=== PATIENT | female | born 1985 | race Hispanic/Latino ===

== ENCOUNTER 2018-12-04 15:55 | Inpatient (IN) | payer MEDICAID ==
[2018-12-04] MEDS ORDERED: LACTATED RINGERS 1,000 ML ONE (17:18)
[2018-12-04] MEDS ORDERED: LACTATED RINGERS 1,000 ML IV SCH ×2 (18:00→19:00)
[2018-12-04] MEDS ORDERED: STADOL IV PRN (18:31)
[2018-12-04] MEDS ORDERED: BRETHINE SUB-Q PRN (18:31)
[2018-12-04] MEDS ORDERED: BRETHINE IVP PRN (18:31)
[2018-12-04] MEDS ORDERED: SUBLIMAZE IV PRN (18:31)
[2018-12-04] MEDS ORDERED: XYLOCAINE 2% INFILTRATI ONE (18:31)
[2018-12-04] MEDS ORDERED: MINERAL OIL PO PRN (18:31)
[2018-12-04 18:41] LABS: Basophils % (Auto) 0.1 % (0.0-1.8); Eosinophils % (Auto) 0.1 % (0.0-4.3); Hemoglobin 12.5 gm/dl (10.1-14.3); Mean Corpuscular HGB Conc 34 % (30-34); Mean Corpuscular Volume 87 fl (79-97); Monocytes # (Auto) 0.7 K/mm3 (0.0-0.8); Monocytes % (Auto) 7.6 % (0.0-7.3); Platelet Count 209 K/mm3 (140-440); Red Blood Count 4.25 M/mm3 (3.65-5.03); Red Cell Distribution Width 13.7 % (13.2-15.2)
--- NOTE | 2018-12-04 18:43 | History and Physical Report ---
History of Present Illness Date of examination: 12/04/18 Date of admission: 12/04/18 15:55 Chief complaint: I'm here for induction History of present illness: Pt is a 33 year old who presents today for induction of labor secondary to oligohydramnios at term at the recommendation of [facility]. Past History Past Medical History: no pertinent history Past Surgical History: no surgical history Social history: - Obstetrical History Expected Date of Delivery: 12/06/18 Actual Gestation: 39 Week(s) 5 Day(s) : 4 Medications and Allergies Allergies Allergy/AdvReac Type Severity Reaction Status Date / Time No Known Allergies Allergy Verified 12/04/18 16:52 Home Medications Medication Instructions Recorded Confirmed Last Taken Type No Known Home Medications [No 12/04/18 12/04/18 Unknown History Reported Home Medications] Active Meds: Active Medications Lactated Ringer's (Lactated Ringers) 1,000 mls @ 125 mls/hr IV DIRECT ANITA Review of Systems All systems: negative Genitourinary: deferred Rectal Exam: deferred - Vital Signs Vital signs: Vital Signs Temp Pulse Resp BP 96.4 F L 89 20 111/72 12/04/18 16:52 12/04/18 16:52 12/04/18 16:52 12/04/18 16:52 Temp Pulse Resp BP Pulse Ox 96.4 F L 89 20 111/72 12/04/18 16:52 12/04/18 16:53 12/04/18 16:52 12/04/18 16:53 - Physical Exam Breasts: Positive: deferred Cardiovascular: Regular rate, Normal S1, Normal S2 Lungs: Positive: Clear to auscultation, Normal air movement Abdomen: Positive: normal appearance, soft, normal bowel sounds Genitourinary (Female): Positive: normal external genitalia, normal perenium Vulva: both: normal Vagina: Positive: normal moisture Uterus: Positive: enlarged Adnexa: both: normal Extremities: Positive: normal Deep Tendon Reflex Grade: Normal +2 - Obstetrical FHR: auscultation normal Cervical Dilatation: 3.5 Cervical Effacement Percentage: 60 station: -3 Uterine Contraction Pattern: Irregular Results Result Diagrams: 12/04/18 17:30 All other labs normal. Assessment and Plan IUP at 39.5 weeks who presents for induction of labor secondary to oligohydramnios at term. Patient has had an otherwise uncomplicated course.
[2018-12-04] MEDS ORDERED: PITOCin/NS 20 UNIT/1000ML DRIP 20 UNITS/1,000 ML BAG IV SCH (19:00)
[2018-12-04] MEDS ORDERED: PITOCin/NS 30 UNIT/500ML 30 UNITS/500 ML BAG IV SCH (19:00)
--- NOTE | 2018-12-05 01:13 | Procedure Note ---
OB Delivery Note - Delivery Date of Delivery: 12/05/18 Surgeon: YAN NEVES Estimated blood loss: 200cc - Vaginal Delivery presentation: vertex Delivery position: OA Intrapartum events: none Delivery induction: oxytocin Delivery monitor: external FHT, external uterine Route of delivery: Delivery placenta: spontaneous Delivery cord: nuchal cord, 3 umbilical vessels Episiotomy: none Delivery laceration: none Anesthesia: none Delivery comments: Viable female delivered over intact perineum with loose nuchal easily reduced on perineum. placed on maternal abdomen. Apgars 8,9. Weight 7 pounds 7 ounces. Placenta delivered spontaneously and intact with 3vc. No lacerations. Pt tolerated procedure well. Excellent hemostasis. - A at 1 minute: 8 at 5 minutes: 9 (7 pounds 7 ounces) Infant Gender: Female
[2018-12-05] MEDS ORDERED: TYLENOL PO PRN (03:31)
[2018-12-05] MEDS ORDERED: ZOFRAN IV PRN (03:31)
[2018-12-05] MEDS ORDERED: BENADRYL PO PRN (03:31)
[2018-12-05] MEDS ORDERED: TUCKS PAD TP PRN (03:31)
[2018-12-05] MEDS ORDERED: PHENERGAN PR PRN (03:31)
[2018-12-05] MEDS ORDERED: PHENERGAN PO PRN (03:31)
[2018-12-05] MEDS ORDERED: MILK OF MAGNESIA PO PRN (03:31)
[2018-12-05] MEDS ORDERED: LANSINOH TP PRN (03:31)
[2018-12-05] MEDS ORDERED: DULCOLAX PR PRN (03:31)
[2018-12-05] MEDS ORDERED: SODIUM CHLORIDE FLUSH SYRINGE 10 ML IV PRN (03:31)
[2018-12-05] MEDS ORDERED: TORADOL IV PRN (03:31)
[2018-12-05] MEDS: IBUPROFEN PO SCH ×3 (04:06→16:45)
[2018-12-05] MEDS: NORCO 5/325 PO PRN ×3 (04:07→16:45)
[2018-12-05] MEDS: COLACE PO SCH (09:54)
[2018-12-05] MEDS: PRENATAL VITAMIN PO SCH (09:54)
[2018-12-05 14:25] LABS: Hematocrit 30.8 % (30.3-42.9); Hemoglobin 10.3 gm/dl (10.1-14.3)
[2018-12-05] MEDS ORDERED: BOOSTRIX IM ONE (18:00)
[2018-12-06] MEDS: NORCO 5/325 PO PRN ×2 (00:14→06:30)
[2018-12-06] MEDS: COLACE PO SCH ×2 (00:15→09:50)
[2018-12-06] MEDS: IBUPROFEN PO SCH ×3 (00:15→12:55)
[2018-12-06] MEDS: PRENATAL VITAMIN PO SCH (09:50)
--- NOTE | 2018-12-06 14:17 | Progress Note ---
Assessment and Plan - Patient Problems (1) Anemia affecting Status: Acute Plan to address problem: Asymptomatic. (2) Oligohydramnios delivered Status: Acute Plan to address problem: Recovering well. Desires to be discharged today with and assist in care of other children. Subjective - Subjective Principal diagnosis: oligohydramnios Patient reports: appetite normal, voiding normally, pain well controlled [place]: doing well Objective - Vital Signs Latest vital signs: Vital Signs Temp Pulse Resp BP BP Pulse Ox 12/06/18 12:55 18 12/06/18 08:27 97.5 F L 72 18 117/62 12/05/18 23:56 98.2 F 83 20 104/62 97 12/05/18 16:45 16 12/05/18 15:20 97.6 F 71 18 101/61 98 Intake and Output 12/05/18 12/06/18 12/06/18 23:59 07:59 15:59 Intake Total 360 480 Balance 360 480 Intake: Oral 480 Intake, Free Water 360 Other: Total, Intake Amount 480 # Voids Void 3 - Exam Uterus: Present: firm - Labs Labs: Laboratory Last Values WBC 9.7 K/mm3 (4.5-11.0) 12/04/18 17:30 RBC 4.25 M/mm3 (3.65-5.03) 12/04/18 17:30 Hgb 10.3 gm/dl (10.1-14.3) 12/05/18 13:43 Hct 30.8 % (30.3-42.9) D 12/05/18 13:43 MCV 87 fl (79-97) 12/04/18 17:30 MCH 29 pg (28-32) 12/04/18 17:30 MCHC 34 % (30-34) 12/04/18 17:30 RDW 13.7 % (13.2-15.2) 12/04/18 17:30 Plt Count 209 K/mm3 (140-440) 12/04/18 17:30 Lymph % (Auto) 21.0 % (13.4-35.0) 12/04/18 17:30 [place] % (Auto) 7.6 % (0.0-7.3) H 12/04/18 17:30 Eos % (Auto) 0.1 % (0.0-4.3) 12/04/18 17:30 Baso % (Auto) 0.1 % (0.0-1.8) 12/04/18 17:30 Lymph # 2.0 K/mm3 (1.2-5.4) 12/04/18 17:30 [place] # 0.7 K/mm3 (0.0-0.8) 12/04/18 17:30 Eos # 0.0 K/mm3 (0.0-0.4) 12/04/18 17:30 Baso # 0.0 K/mm3 (0.0-0.1) 12/04/18 17:30 Seg Neutrophils % 71.2 % (40.0-70.0) H 12/04/18 17:30 Seg Neutrophils # 6.9 K/mm3 (1.8-7.7) 12/04/18 17:30 RPR Nonreactive (Nonreactive) 12/04/18 17:30 Blood Type O POSITIVE 12/04/18 17:30 Antibody Screen Negative 12/04/18 17:30
[2018-12-06 17:05] VITALS: BP 112/62
--- NOTE | 2018-12-06 18:51 | Discharge Summary ---
Providers - Providers Date of Admission: 12/04/18 15:55 Attending physician: YAN NEVES Primary care physician: YAN NEVES Hospitalization Reason for admission: induction of labor, other (oligohydramnios) Delivery: Procedure details: Delivery Date of Delivery: 12/05/18 Surgeon: YAN NEVES Estimated blood loss: 200cc - Vaginal Delivery presentation: vertex Delivery position: OA Intrapartum events: none Delivery induction: oxytocin Delivery monitor: external FHT, external uterine Route of delivery: Delivery placenta: spontaneous Delivery cord: nuchal cord, 3 umbilical vessels Episiotomy: none Delivery laceration: none Anesthesia: none Delivery comments: Viable female delivered over intact perineum with loose nuchal easily reduced on perineum. Infant placed on maternal abdomen. Apgars 8,9. Weight 7 pounds 7 ounces. Placenta delivered spontaneously and intact with 3vc. No lacerations. Pt tolerated procedure well. Excellent hemostasis. - A at 1 minute: 8 at 5 minutes: 9 (7 pounds 7 ounces) Gender: Female complications: none Discharge diagnosis: IUP at term delivered [place] baby: female Hospital course: Vitals stable. Bleeding well controlled. Discharged home in stable condition. Condition at discharge: Stable Disposition: DC- TO HOME OR SELFCARE - Discharge Diagnoses (1) Oligohydramnios delivered Status: Acute (2) Anemia affecting Status: Acute Comment: asymptomatic. continue home iron medications. Plan - Discharge Medications Prescriptions: Ibuprofen [Motrin] 800 mg PO Q8HR PRN #40 tablet PRN Reason: Pain, Moderate (4-6) HYDROcodone/APAP 5-325 [[place] 5/325] 1 each PO Q4HR PRN #20 tablet PRN Reason: Pain - Provider Discharge Summary Additional instructions: [] Smoking cessation referral if applicable(refer to patient education folder for contact #) [] Refer to [facility] Booklet Call your doctor immediately for: * Fever > 100.5 * Heavy vaginal bleeding ( >1 pad per hour) * Severe persistent headache * Shortness of breath * Reddened, hot, painful area to leg or breast * Drainage or odor from incision. * Keep incision clean and dry at all times and follow doctor's instructions regarding bathing/showering - Follow up plan Follow up: YAN NEVES MD [Primary Care Provider] - 7 Days Forms: C Discharge Summary, Discharge Signature Page
== END 2018-12-06 18:53 | disposition home or self-care (01) | DRG 775 ==
LOC: LD 15:55 → OB 12-05 03:07
PROVIDERS: ADMIT Obstetrics & Gynecology; ATTEND Obstetrics & Gynecology
PROC: 3E033VJ Introduction of Other Hormone into Peripheral Vein, Percutaneous Approach (ICD-10-PCS; 2018-12-04)
PROC: 10E0XZZ Delivery of Products of Conception, External Approach (ICD-10-PCS; principal; 2018-12-05)
PROC: 3E0234Z Introduction of Serum, Toxoid and Vaccine into Muscle, Percutaneous Approach (ICD-10-PCS; 2018-12-05)
DX: O41.03X0 Oligohydramnios, third trimester, not applicable or unspecified (principal); O69.81X0 Labor and delivery complicated by cord around neck, without compression, not applicable or unspecified; O99.02 Anemia complicating childbirth; Z3A.39 39 weeks gestation of pregnancy; Z37.0 Single live birth; Z23 Encounter for immunization
CPT/HCPCS: 36415; 85014; 85018; 85025; 86592; 86850; 86900; 86901; 90715; G0378; A6250; J0595; J2590; J7120

== ENCOUNTER 2019-01-10 07:58 | Day surgery (SDC) | payer MEDICAID ==
[~2019-01-10 07:58] MED LIST: MARCAINE 0.25% INFILTRATI ONE; METHYLENE BLUE ONE; SILVER NITRATE TP ONE
[2019-01-10] MEDS ORDERED: ANCEF/STERILE WATER 2 GM/20 ML 2 GM/20 ML SYRINGE IV NR (09:00)
--- NOTE | 2019-01-10 09:28 | Anesthesia Day of Surgery ---
Anesthesia Day of Surgery - Day of Surgery Patient Examined: Yes Patient H&P Reviewed: Yes Patient is NPO: Yes
--- NOTE | 2019-01-10 09:28 | Anesthesia Consultation ---
Anesthesia Consult and Med Hx Date of service: 01/10/19 - Airway Anesthetic Teeth Evaluation: Good ROM Head & Neck: Adequate Mental/Hyoid Distance: Adequate Mallampati Class: Class II Intubation Access Assessment: Probably Good - Pulmonary Exam CTA: Yes - Cardiac Exam Cardiac Exam: RRR - Pre-Operative Health Status ASA Pre-Surgery Classification: ASA2 Proposed Anesthetic Plan: General - Pulmonary Hx Smoking: Yes (former smoker quit 10 yrs) Hx Respiratory Symptoms: No - Cardiovascular System Hx Hypertension: No Hx Heart Attack/AMI: No Hx Percutaneous Transluminal Coronary Angioplasty (PTCA): No - Central Nervous System Hx Seizures: No CVA: No Hx Psychiatric Problems: No - Gastrointestinal Hx Gastroesophageal Reflux Disease: No - Endocrine Hx Renal Disease: No Hx Liver Disease: No Hx Insulin Dependent Diabetes: No Hx Non-Insulin Dependent Diabetes: No Hx Thyroid Disease: No Hx Hypothyroidism: No Hx Hyperthyroidism: No - Hematic Hx Anemia: No Hx Sickle Cell Disease: No - Other Systems Hx Alcohol Use: Yes (Occas) Hx Obesity: Yes - Additional Comments Anesthesia Medical History Comments: No hx anesthetic complications. Recent childbirth 12/05/18. No longer breast feeding.
[2019-01-10] MEDS ORDERED: LACTATED RINGERS 1,000 ML IV SCH (10:00)
[2019-01-10] MEDS ORDERED: VERSED IV NR (10:00)
[2019-01-10] MEDS ORDERED: NEURONTIN PO NR (10:00)
[2019-01-10] MEDS ORDERED: TRANSDERM-SCOP TD NR (10:00)
[2019-01-10] MEDS ORDERED: DILAUDID ONE (10:20)
[2019-01-10] MEDS ORDERED: DIPRIVAN 10 MG/ML IV ONE (10:21)
[2019-01-10] MEDS ORDERED: ZEMURON IV ONE (10:21)
[2019-01-10] MEDS ORDERED: XYLOCAINE MPF 2% ONE (10:24)
--- NOTE | 2019-01-10 10:29 | Short Stay Summary ---
Short Stay Documentation Date of service: 01/10/19 Narrative H&P: Patient is a 33 year old who presents for elective sterilization approximately 4 weeks after . Pt is doing well and has no complaints. - History H&P: obtained from office Past Medical History: No medical history Past Surgical History: No surgical history Social history: - Allergies and Medications Current Medications: Allergies No Known Allergies Allergy (Verified 01/03/19 16:10) Home Medications Medication Instructions Recorded Confirmed Last Taken Type Ibuprofen [Motrin] 800 mg PO Q8HR PRN #40 tablet 12/05/18 01/03/19 Unknown Rx Active Medications Celecoxib (Celebrex) 200 mg PO PREOP NR Stop: 01/10/19 18:00 Last Admin: 01/10/19 09:58 Dose: 200 mg Documented by: Gabapentin (Neurontin) 300 mg PO PREOP NR Stop: 01/10/19 18:00 Last Admin: 01/10/19 09:58 Dose: 300 mg Documented by: Hydromorphone HCl (Dilaudid) 0.5 mg IV Q10MIN PRN PRN Reason: Pain , Severe (7-10) Stop: 01/10/19 20:00 Cefazolin Sodium (Ancef/Sterile Water 2 Gm/20 Ml) 2 gm in 20 mls @ 80 mls/hr IV PREOP NR; Protocol Stop: 01/10/19 18:00 Lactated Ringer's (Lactated Ringers) 1,000 mls @ 100 mls/hr IV DIRECT ANITA Last Admin: 01/10/19 09:59 Dose: 100 mls/hr Documented by: Midazolam HCl (Versed) 2 mg IV PREOP NR Stop: 01/10/19 23:59 Scopolamine (Transderm-Scop) 1 each TD PREOP NR Stop: 01/10/19 23:00 - Physical exam General appearance: no acute distress Integumentary: no rash Lungs: Clear to auscultation, Normal air movement Breasts: deferred Heart: Regular rate, Normal S1, Normal S2 Gastrointestinal: normal, normoactive bowel sounds Female Genitourinary: normal Rectal Exam: deferred Extremities: No edema - Brief post op/procedure progress note Date of procedure: 01/10/19 Pre-op diagnosis: Undesired fertility Post-op diagnosis: same Procedure: Bilateral laparscopic salpingectomy Anesthesia: GETA Findings: Normal uterus, tubes and ovaries Surgeon: YAN NEVES Estimated blood loss: minimal Pathology: list (portion or right and left tube) Specimen disposition: to lab Condition: stable - Hospital course Hospital course: unremarkable - Disposition Condition at discharge: Good Disposition: DC-01 TO HOME OR SELFCARE Short Stay Discharge Plan Activity: advance as tolerated Weight Bearing Status: Weight Bear as Tolerated Diet: regular Wound: keep clean and dry Follow up with: YAN NEVES MD [Primary Care Provider] - 14 Days Prescriptions: Ibuprofen [Motrin 800 MG tab] 800 mg PO Q8HR PRN #40 tablet PRN Reason: Pain, Moderate (4-6) HYDROcodone/APAP 5-325 [[place] 5/325] 2 each PO Q6HR PRN #40 tablet PRN Reason: Pain
[2019-01-10] MEDS ORDERED: DECADRON ONE (11:04)
[2019-01-10] MEDS ORDERED: ZOFRAN ONE (11:05)
[2019-01-10] MEDS ORDERED: MARCAINE 0.5% INFILTRATI ONE (11:15)
[2019-01-10] MEDS ORDERED: BLOXIVERZ ONE (11:36)
[2019-01-10] MEDS ORDERED: ROBINUL ONE (11:36)
--- NOTE | 2019-01-10 11:53 | Operative Report ---
Operative Report Operative Report: Preoperative diagnosis: Undesired fertility Postoperative diagnosis: Same Procedure: Bilateral laparoscopic salpingectomy Surgeon: Saima Solomon Anesthesia: General EBL: Minimal IV fluids: 1000 mL LR Urine output: 50 mL Findings: Normal uterus tubes and ovaries Specimens: Portion of right and left fallopian tube Complications: None The patient was properly identified as herself. She was then taken to the OR with IV running and in place. She was given general anesthesia without diffic ulty. She was placed in a dorsal lithotomy position. She was then prepped and draped in normal sterile fashion. Attention was turned to the patient's vagina. Her bladder was drained of clear urine with a red rubber catheter. The speculum was then placed the patient's vagina. The cervix was visualized and grasped with tenaculum. The acorn cannula was then inserted. The surgeon's gloves were changed and attention turned to the patient's abdomen. A small incision was made in the patient's umbilicus incision a 5 mm trocar was placed. The laparoscope confirmed intra-abdominal placement. The abdomen was insufflated with CO2 gas to approximately 25 mmHg. Both fallopian tubes were identified. With direct visualization a second trocar was placed through an incision in the left lower quadrant. Both tubes were found and followed out to the fimbriated ends. Each tube was cauterized at the portion nearest the cornua, then cauterized across the broad ligament until the tube was completely detached. There was excellent hemostasis at the end of this portion of the procedure. Each tube was handed off for pathology. At this point the abdomen was deflated. All instruments were then removed from the abdomen. The incisions were then closed with 4-0 Monocryl. The incisions were also injected with quarter percent Marcaine. The patient tolerated the procedure well she was then awakened and taken recovery in stable condition. Sponge needle and instrument counts were correct 2.
[2019-01-10] MEDS: DILAUDID IV PRN ×2 (12:00→12:14)
[2019-01-10] MEDS ORDERED: NORCO 5/325 PO PRN (12:20)
[2019-01-10 14:00] VITALS: BP 114/69
--- NOTE | 2019-01-10 18:53 | Post Anesthesia Evaluation ---
- Post Anesthesia Evaluation Patient Participated: Yes Airway Patent: Yes Stable Respiratory Function: Yes Nausea/Vomiting: No Temp > 96.8F: Yes Pain Manageable: Yes Adequeate Hydration: Yes Anesthesia Complications: No Block Receding Appropriately: Not Applicable Patient on Ventilator: No
== END 2019-01-10 14:00 | disposition home or self-care (01) ==
LOC: OR 07:58
PROVIDERS: ATTEND Obstetrics & Gynecology
DX: Z30.2 Encounter for sterilization (principal); E66.9 Obesity, unspecified; Z68.32 Body mass index [BMI] 32.0-32.9, adult; Z72.89 Other problems related to lifestyle; Z98.890 Other specified postprocedural states; Z79.899 Other long term (current) drug therapy; Z87.891 Personal history of nicotine dependence; Z83.3 Family history of diabetes mellitus; Z82.49 Family history of ischemic heart disease and other diseases of the circulatory system
CPT/HCPCS: 58670; 81025; 88302; J0690; J1100; J1170; J2250; J2405; J2704; J2710; J7120; Q9968